=== PATIENT | female | born 1980 | race Caucasian/White ===

== ENCOUNTER 2018-12-12 11:24 | Emergency (ER) | payer OTHER, SELFPAY ==
[2018-12-12 11:24] VITALS: BP 167/91; PULSE 97; RESP 16; TEMP 36.8; O2SAT 97; BMI 40.3
--- NOTE | 2018-12-12 11:42 | ED.VISSUMM ---
- ER Visit Summary Date of Service: 12/12/18 Chief Complaint: [Left hand pain] History of Present Illness: The patient is a 38 F [presents to the emergency department with complaint of pain in her left hand. Patient states that one week ago she was bitten by a cat on the left small finger dorsal aspect. Patient works as a veterinary receptionist. She was seen at [facility] and [facility] where she was started on Augmentin for 3 days. Patient subsequently developed more discomfort to the thumb area and went back 3 days later at which time she had x-rays of her hand which were unremarkable and she was placed on 10 days of Augmentin of which she still currently taking. 4 days ago while at work patient developed increased pain and swelling to the thenar eminence of the thumb. This is a Workmen's Comp. injury. She denies any fevers. She denies any other injury to the hand other than she was trying to secure the cat at the time she was bitten.] Physical Examination: [Left hand-there is minimal soft tissue swelling over the thenar eminence compared to the right side. Patient has normal range of motion flexion extension of the thumb. Ulnar and radial collateral ligaments of the thumb appear to be intact and I do not appreciate any obvious laxity. No evidence no erythema or warmth noted to the hand. The left small finger appears normal and there is no signs of cellulitis or infection. Patient has normal cap refill and normal sensation.] Test Results: [None indicated] Emergency Department Course and Treatment: [Patient was placed in a thumb spica splint. There is no sign of infection. I suspect patient may have strained muscles.] Treatment Plan: [I advised to continue with anti-inflammatories and wear the splint. Patient will be given a referral to Dr. Acosta'ellie Zarco for follow-up] Disposition: [Discharged home in stable condition.] Impression: [Left hand pain-etiology uncertain] This note was generated with [employer] dictation software. It may contain incorrect words, spelling, and punctuation that were not noted in review of the chart prior to signing ED Disposition - Plan for ED Patient: Referrals: Adina Daley DO [Primary Care Provider] -
--- NOTE | 2018-12-12 11:46 | ED.DCSUM_ITS ---
- ER Visit Summary Date of Service: 12/12/18 Chief Complaint: [Left hand pain] History of Present Illness: The patient is a 38 F [presents to the emergency department with complaint of pain in her left hand. Patient states that one week ago she was bitten by a cat on the left small finger dorsal aspect. 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 She was seen at [facility] and [facility] where she was started on Augmentin for 3 days. Patient subsequently developed more discomfort to the thumb area and went back 3 days later at which time she had x-rays of her hand which were unremarkable and she was placed on 10 days of Augmentin of which she still currently taking. 4 days ago while at work patient developed increased pain and swelling to the thenar eminence of the thumb. This is a Workmen's Comp. injury. She denies any fevers. She denies any other injury to the hand other than she was trying to secure the cat at the time she was bitten.] Physical Examination: [Left hand-there is minimal soft tissue swelling over the thenar eminence compared to the right side. Patient has normal range of motion flexion extension of the thumb. Ulnar and radial collateral ligaments of the thumb appear to be intact and I do not appreciate any obvious laxity. No evidence no erythema or warmth noted to the hand. The left small finger appears normal and there is no signs of cellulitis or infection. Patient has normal cap refill and normal sensation.] Test Results: [None indicated] Emergency Department Course and Treatment: [Patient was placed in a thumb spica splint. There is no sign of infection. I suspect patient may have strained muscles.] Treatment Plan: [I advised to continue with anti-inflammatories and wear the splint. Patient will be given a referral to Dr. Yola Zarco for follow-up] Disposition: [Discharged home in stable condition.] Impression: [Left hand pain-etiology uncertain] This note was generated with [employer] dictation software. It may contain incorrect words, spelling, and punctuation that were not noted in review of the chart prior to signing ED Disposition - Plan for ED Patient: Referrals: Adina Daley DO [Primary Care Provider] -
--- NOTE | 2018-12-12 11:46 | ED.DEP ---
ED Disposition - Plan for ED Patient: Instructions: ED Sprain Hand Referrals: Adina Daley DO [Primary Care Provider] - Dave Zarco MD [STAFF PHYSICIAN] - 3-5 Days
== END 2018-12-12 11:57 | disposition home or self-care (01) ==
PROVIDERS: Emergency Provider Emergency Medicine; Family Provider Internal Medicine; PCP Internal Medicine
DX: M79.642 Pain in left hand (principal); M79.89 Other specified soft tissue disorders; Z72.0 Tobacco use
CPT/HCPCS: 99283

== ENCOUNTER → 2021-03-02 09:20 | Outpatient (CLI) | payer OTHER, SELFPAY ==
[2021-03-02 11:09] LABS: Hemoglobin 14.9 g/dL (12.0-15.0); Mean Corp Hgb Conc 33.9 g/dL (32-36); Mean Corpuscular Hgb 30.5 pg (27.0-32.0); Mean Corpuscular Volume 90.2 fL (81-99); Mean Platelet Vol. 9.5 fl (6.2-12.0); Platelet Count 324 K/mm3 (150-450); RBC Distribution Width CV 12.6 % (11.6-14.6); RBC Distribution Width SD 41.6 fl (35.1-43.9); Red Blood Count 4.88 M/mm3 (4.2-5.4); White Blood Count 7.5 K/mm3 (4.4-11.0)
[2021-03-02 11:56] LABS: Estradiol 90.4 pg/mL; Follicle Stimulating Hormone 5.1 mIU/mL; Luteinizing Hormone 5.9 mIU/mL; Prolactin 9.9 ng/mL
[2021-03-02 11:58] LABS: hCG Titer Quant., Serum < 1 mIU/mL (1-3)
[2021-03-05 11:02] LABS: HPV APTIMA, High Risk Negative (Negative)
[2021-03-06 13:32] LABS: Testosterone Free 2.4 pg/mL (0.0-4.2)
== END ==
PROVIDERS: PCP Internal Medicine; Visit Provider Obstetrics & Gynecology
DX: N93.9 Abnormal uterine and vaginal bleeding, unspecified (principal); Z12.4 Encounter for screening for malignant neoplasm of cervix
CPT/HCPCS: 36415; 82670; 83001; 83002; 84146; 84402; 84702; 85027; 87624; 88175; G0145

== ENCOUNTER → 2021-03-16 | Outpatient (CLI) | payer OTHER, SELFPAY ==
--- NOTE | 2021-03-16 | EMB_PTH ---
PATIENT: CHARLES PATEL LOC: [facility] U#:[id number] AGE/SX: 41/F ROOM: RE03/16/[address]: Dr. Dave Leon MD : 1980 BED: DIS: 03/16/2021 SPEC #: [id number] RECD: 03/16/21 11:06 STATUS: AISLINN MATT #: [id number] ADILENE: 03/16/21 00:[address]: Dave Leon DEPT: SURGICAL PATHOLOGY RECD BY: Sherlyn Lundberg ENTERED: 03/16/21 11:06 SP TYPE: ENDOM BX/C JACQUI DR: Dr. Adina Daley, Tissues: Endometrium, NOS Procedures: Surgery Specimen Level IV HEADER OPERATION: Endometrial biopsy PRE-OP DIAGNOSIS: Abnormal uterine bleeding TISSUE SUBMITTED: Endometrial biopsy MICROSCOPIC DIAGNOSIS Endometrial biopsy: Proliferative endometrium. RAÚL:[email or web address] 03/17/2021 MICROSCOPIC DESCRIPTION Slides are reviewed. GROSS DESCRIPTION Received in fixative is one container labeled with the patient's name and designated EMB. The specimen consists of an irregular fragment of luna soft tissue that measures 2 x 2 x 0.2 cm. The specimen is totally submitted in one cassette. / RAÚL:wilfredo 03/16/21 TC:4 CPT: 13533
== END | disposition home or self-care (01) ==
LOC: LABSPEC 10:11
PROVIDERS: PCP Internal Medicine; Visit Provider Obstetrics & Gynecology
DX: N93.9 Abnormal uterine and vaginal bleeding, unspecified (principal)
CPT/HCPCS: 88305

== ENCOUNTER → 2023-07-04 | Outpatient (CLI) | payer OTHER, SELFPAY ==
--- NOTE | 2023-07-04 07:28 | BI_ITS ---
MAMMOGRAPHY - BILATERAL SCREENING REASON FOR EXAM: Female, 43 years old. Routine annual screening examination. PERTINENT HISTORY: Non-contributory. TECHNIQUE: Digital bilateral breast noel (3D mammographic acquisition) in the CC and MLO projections. 2-D mediolateral oblique (MLO) and craniocaudad (CC) views of both breasts were obtained. CAD: Full Field Digital Mammography with Computer Added Detection was performed. COMPARISON: None. Baseline examination. FINDINGS: Breast Composition: The breasts are heterogeneously dense, which may obscure small masses. There are no dominant masses or suspicious calcifications. Small benign-appearing bilateral axillary lymph nodes. No other significant abnormalities are identified. BI/SCRN MAMM (CAD)W/NOEL BILAT IMPRESSION: Negative screening mammogram. Yearly followup mammogram recommended. (A) ASSESSMENT CATEGORY: BIRADS Category 2: Benign. A letter regarding these results will be sent to the patient by the facility within 30 days. Approximately 10% of breast cancers are not detected by mammography. A normal mammogram should not delay biopsy of a clinically suspicious abnormality. [id number] Electronically Signed: Ish Morales MD at 8:44 EST ,
== END | disposition home or self-care (01) ==
LOC: OPBI 07:27
PROVIDERS: PCP Internal Medicine; Referring Provider Internal Medicine; Visit Provider Internal Medicine
DX: Z12.31 Encounter for screening mammogram for malignant neoplasm of breast (principal)
CPT/HCPCS: 77063; 77067

== ENCOUNTER → 2024-01-27 | Outpatient (CLI) | payer OTHER, SELFPAY ==
--- NOTE | 2024-01-27 11:20 | RAD_ITS ---
STUDY: X-RAY CHEST REASON FOR EXAM: Female, 43 years old. COPD, mild TECHNIQUE: PA and lateral views of the chest. COMPARISON: None. FINDINGS: The lungs are clear and expanded. There is no demonstrated pleural abnormality. Normal size heart. Normal mediastinum and gaurav. Normal visualized pulmonary arteries. Normal visualized aortic arch and descending thoracic aorta. There are degenerative changes of the visualized thoracic spine. Normal visualized ribs, clavicles, and shoulders. There is no demonstrated abnormality of the visualized soft tissue structures of the upper abdomen. RAD/Chest PA and Lateral IMPRESSION: Normal x-ray examination of the chest. Electronically Signed: Ish Morales MD at 15:30 EDT ,
== END | disposition home or self-care (01) ==
PROVIDERS: PCP Internal Medicine; Referring Provider Internal Medicine; Visit Provider Internal Medicine
DX: J44.9 Chronic obstructive pulmonary disease, unspecified (principal)
CPT/HCPCS: 71046; 94060; 94726; 94729